=== PATIENT | male | born 1975 | race Caucasian/White ===

== ENCOUNTER 2023-05-24 16:08 | Emergency (ER) | payer SELFPAY ==
[~2023-05-24] VITALS: Ht 170.2 cm; Wt 75.0 kg
[2023-05-24 16:12] VITALS: O2SAT 99
[2023-05-25 04:46] VITALS: BP 142/76; PULSE 78; RESP 16; TEMP 98.4
== END 2023-05-25 04:48 | disposition home or self-care (01) ==
LOC: ER 16:08
DX: F10.129 Alcohol abuse with intoxication, unspecified (principal); R41.82 Altered mental status, unspecified; Y90.9 Presence of alcohol in blood, level not specified
CPT/HCPCS: 99283